=== PATIENT | male | born 1930 | race Caucasian/White ===

== ENCOUNTER 2017-11-11 16:45 | Emergency (ER) | payer MEDICARE ==
[2017-11-11 19:01] VITALS: BP 127/74
--- NOTE | 2017-11-11 19:12 | UC ---
Skin Complaint HPI - HPI Summary HPI Summary: Pt presents with progressive rash x 2 weeks. Pt is 3 months s/p chemo for lymphoma. Pt states rash started on face, left side. Pt states saw his oncologist who sent him to derm. Derm thought allergic/hives - no infection - unclear source. Pt was given topical meds. Pt states rash has progressed to arms , chest, leg. Pt states blotchy and itchy. Little relieft with topical meds. No antihistamine taken. Pt denies cp, sob, abd pain. No n/v/d. No fevers, chills. Pt states his orange picker is out of the office until next week - has an appointment. Pt states ithcing and burning makes sleeping difficult. Pt denies new medications, hyeine products, environment change. No other complaints Pt's medications reviewed this visit - History of Current Complaint Chief Complaint: UCSkin Time Seen by Provider: 11/11/17 19:10 Stated Complaint: SKIN COMPLAINT Pain Intensity: 0 - Allergy/Home Medications Allergies/Adverse Reactions: Allergies Allergy/AdvReac Type Severity Reaction Status Date / Time No Known Allergies Allergy Verified 11/11/17 18:45 Home Medications: Home Medications Allopurinol TAB* [Zyloprim 300 MG TAB*] 300 mg PO DAILY 11/11/17 [History Confirmed 11/11/17] Docusate CAP* [Colace Cap*] 100 mg PO BID PRN 11/11/17 [History Confirmed ] Metoprolol Tartrate TAB* [Lopressor TAB*] 50 mg BID 11/11/17 [History Confirmed 11/11/17] Review of Systems Constitutional: Negative Skin: Rash Respiratory: Negative Cardiovascular: Negative Gastrointestinal: Negative Genitourinary: Negative Musculoskeletal: Negative Neurological: Negative All Other Systems Reviewed And Are Negative: Yes PMH/Surg Hx/FS Hx/Imm Hx Previously Healthy: Yes - Surgical History Surgical History: Yes Surgery Procedure, Year, and Place: Skin biopsy. PORT - Family History Known Family History: Positive: Hypertension - Social History Occupation: Retired Lives: With Family Alcohol Use: None Substance Use Type: None Smoking Status (MU): Never Smoked Tobacco Physical Exam Triage Information Reviewed: Yes Appearance: Well-Appearing, No Pain Distress, Well-Nourished Vital Signs: Initial Vital Signs Temp 98.2 F 11/11/17 18:51 Pulse 65 11/11/17 18:51 Resp 16 11/11/17 18:51 BP 127/74 11/11/17 18:51 Pulse Ox 98 11/11/17 18:51 Vital Signs Reviewed: Yes Eye Exam: Normal Eyes: Positive: Conjunctiva Clear ENT Exam: Normal ENT: Positive: Normal ENT inspection, Hearing grossly normal, Pharynx normal, TMs normal, Uvula midline Neck exam: Normal Neck: Positive: Supple, Nontender, No Lymphadenopathy Respiratory Exam: Normal Respiratory: Positive: Chest non-tender, Lungs clear, Normal breath sounds, No respiratory distress, No accessory muscle use Cardiovascular Exam: Normal Cardiovascular: Positive: RRR, No Murmur Abdominal Exam: Normal Abdomen Description: Positive: Nontender, No Organomegaly, Soft Bowel Sounds: Positive: Present Musculoskeletal Exam: Normal Neurological Exam: Normal Neurological: Positive: Alert Psychological Exam: Normal Psychological: Positive: Normal Response To Family Skin: Positive: Other - pt with blotchy, diffuse erthema patches, raise rash apparent of hives. some smaller clutsters of same. no drainage. no vesicles. prutritic Course/Dx - Course Course Of Treatment: Pt with 2 weeks progressive rash, diffuse, itching -not responsive to topical treatments. Pt without other symptoms. unable to get to orange picker as out of town. rash does not appear infection, more allergic. will start oral taper. d/w pt precautions with po. avoid heat. avoid NSAID. if sx continue or worsen, recommend to ED for further eval. derm appnt 11/19 - Diagnoses Provider Diagnoses: acute rash Discharge - Discharge Plan Condition: Stable Disposition: HOME Prescriptions: predniSONE TAB* [Deltasone TAB*] 20 mg PO DAILY #13 tab Patient Education Materials: Acute Rash (ED) Referrals: Bakari Yuen [Primary Care Provider] - Additional Instructions: The doctor that evaluated you today is not sure the cause of your rash, but does not think it is infection. It is recommended you discontinued to topical ointments Take prednisone exactly as prescribed until gone Okay to take benadryl, 25mg, every 6 hours for itching - do not drive, operate machinery or drink alcohol while taking this medication as it may cause drowsiness Keep your appointment with your orange picker on 11/19/17. Avoid getting over heated - hot showers, hot baths until you feel better Contact your doctor or go to the emergency department if your symptoms worsen, you develop facial swelling, difficulty breathing or other any other concerns
== END 2017-11-11 19:54 | disposition home or self-care (01) ==
LOC: UCCORT 16:45
DX: R51 Headache (principal); Z92.21 Personal history of antineoplastic chemotherapy; Z85.72 Personal history of non-Hodgkin lymphomas
CPT/HCPCS: 99212; G0463